=== PATIENT | male | born 1945 | race African-American/Black ===

== ENCOUNTER 2017-01-15 11:16 | Outpatient (CLI) | payer MEDICARE ==
[2017-01-15 12:26] LABS: #Basophils 0.1 thou/uL (0.0-0.2); #Eosinphils 0.4 thou/uL (0.0-0.7); #Lymphocytes 2.8 thou/uL (1.20-3.40); #Monocytes 0.4 thou/uL (0.11-0.59); #Neutrophils 6.9 thou/uL (1.40-6.50); %Basophils 1.1 % (0.0-1.0); %Lymphocytes 26.3 % (21.0-51.0); %Monocytes 3.9 % (0.0-10.0); %Neutrophils 64.8 % (42.0-75.0); Mean Corpuscular Hemoglobin 27.4 pg (27.0-31.0); Mean Corpuscular Volume 85.6 fl (80.0-94.0); Mean Platelet Volume 9.1 fL (7.4-10.4); Platelet Count 184 thou/uL (130-400); RBC Distribution Width 13.2 % (11.5-14.5); Red Blood Cell (RBC) Count 5.11 mill/uL (4.70-6.10); White Blood Cell (WBC) Count 10.7 thou/uL (4.8-10.8)
[2017-01-15 12:32] LABS: ALT (SGPT) 7 U/L (8-55); AST (SGOT) 12 U/L (5-34); Albumin 3.4 g/dL (3.4-4.8); Alkaline Phosphatase 111 U/L (40-150); Anion Gap 16 mmol/L (10-20); BUN (Urea Nitrogen) 30 mg/dL (8.4-25.7); Bilirubin, Total 0.3 mg/dL (0.2-1.2); Calc. Creatinine Clearance 0 mL/min (70-130); Calcium 8.5 mg/dL (7.8-10.44); Carbon Dioxide 28 mmol/L (23-31); Cardiac Risk 6.6 (Less than 4.5); Chloride 98 mmol/L (98-107); Cholesterol 239 mg/dl (< 200 Desired); Estimated GFR-MDRD 30; Globulin 3.8 g/dL (2.4-3.5); Glucose 310 mg/dL (80-115); HDL Cholesterol 36 mg/dL (>60 Neg Risk); LDL Cholesterol, Calculated 162 mg/dL; Protein, Total 7.2 g/dL (5.8-8.1); Sodium 137 mmol/L (136-145); Triglycerides 204 mg/dL (Less than 150)
[2017-01-15 13:07] LABS: Hemoglobin A1c 7.5 % (4.0-6.0)
[2017-01-15 18:08] LABS: Creatinine, Urine 199.13 mg/dL (63-166)
[2017-01-15 18:19] LABS: Microalbumin Urine Greater than 200.0 mg/dL (0.5-50.0); Microalbumin/Creat Ratio 1004.4 mg/g (Less than 30)
== END 2017-01-15 11:17 | disposition home or self-care (01) ==
LOC: NAVSJIPCSP 11:16
PROVIDERS: ATTEND Internal Medicine
DX: Z12.5 Encounter for screening for malignant neoplasm of prostate (principal); Z12.11 Encounter for screening for malignant neoplasm of colon; E11.9 Type 2 diabetes mellitus without complications; E78.5 Hyperlipidemia, unspecified; I11.9 Hypertensive heart disease without heart failure
CPT/HCPCS: 36415; 80053; 80061; 82043; 82274; 83036; 85025; G0103

== ENCOUNTER 2018-08-04 11:47 | Emergency (ER) | payer MEDICARE ==
[2018-08-04] MEDS ORDERED: methylPREDNISolone Sod Succ/PF 125 MG/2 ML VIAL ONE (12:23)
[2018-08-04 13:00] LABS: #Basophils 0.1 thou/uL (0.0-0.2); #Eosinphils 0.3 thou/uL (0.0-0.7); #Lymphocytes 1.8 thou/uL (1.20-3.40); #Monocytes 0.9 thou/uL (0.11-0.59); #Neutrophils 6.4 thou/uL (1.40-6.50); %Basophils 0.7 % (0.0-1.0); %Eosinophils 3.6 % (0.0-10.0); %Lymphocytes 19.3 % (21.0-51.0); %Monocytes 9.3 % (0.0-10.0); %Neutrophils 67.1 % (42.0-75.0); Hemoglobin 11.5 g/dL (14.0-18.0); Mean Corpuscular Hemoglobin 27.1 pg (27.0-31.0); Mean Corpuscular Volume 90.5 fL (78.0-98.0); Mean Platelet Volume 8.8 fL (7.4-10.4); Platelet Count 183 thou/uL (130-400); RBC Distribution Width 15.9 % (11.5-14.5); Red Blood Cell (RBC) Count 4.25 mill/uL (4.70-6.10); White Blood Cell (WBC) Count 9.5 thou/uL (4.8-10.8)
[2018-08-04 13:04] LABS: ALT (SGPT) 18 U/L (8-55); AST (SGOT) 18 U/L (5-34); Albumin 3.2 g/dL (3.4-4.8); Alkaline Phosphatase 135 U/L (40-150); Anion Gap 15 mmol/L (10-20); BUN (Urea Nitrogen) 29 mg/dL (8.4-25.7); Bilirubin, Total 0.4 mg/dL (0.2-1.2); Calc. Creatinine Clearance 0 mL/min (70-130); Calcium 8.3 mg/dL (7.8-10.44); Carbon Dioxide 29 mmol/L (23-31); Chloride 103 mmol/L (98-107); Estimated GFR-MDRD 25; Globulin 4.4 g/dL (2.4-3.5); Glucose 158 mg/dL (83-110); Potassium 4.5 mmol/L (3.5-5.1); Protein, Total 7.6 g/dL (5.8-8.1); Sodium 142 mmol/L (136-145)
--- NOTE | 2018-08-04 13:07 | RAD ---
PORTABLE CHEST: DATE: 08/04/2018. TIME: 12:39 p.m. History Cough, dyspnea, shortness of breath. FINDINGS/IMPRESSION: Comparison is made with the exam of 04/08/2015. The heart size is enlarged. There is mild elevation of the right hemidiaphragm. No focal areas of c onsolidation, pneumothoraces, chayito pulmonary edema, or large effusions are seen. There is mild prom inence of the pulmonary vascularity. POS: [facility]
[2018-08-04] MEDS ORDERED: Furosemide 40 MG/4 ML VIAL ONE (13:22)
[2018-08-04] MEDS ORDERED: Enoxaparin Sodium 100 MG/ML SYRINGE ONE (14:18)
== END 2018-08-04 14:57 | disposition short-term general hospital (02) ==
LOC: NAV ERS 11:47
DX: I13.0 Hypertensive heart and chronic kidney disease with heart failure and stage 1 through stage 4 chronic kidney disease, or unspecified chronic kidney disease (principal); N18.9 Chronic kidney disease, unspecified; I50.9 Heart failure, unspecified; N17.9 Acute kidney failure, unspecified; E11.22 Type 2 diabetes mellitus with diabetic chronic kidney disease; E78.5 Hyperlipidemia, unspecified; J44.9 Chronic obstructive pulmonary disease, unspecified; F17.210 Nicotine dependence, cigarettes, uncomplicated; Z79.899 Other long term (current) drug therapy
CPT/HCPCS: 71045; 80053; 83880; 84484; 85025; 87804; 93005; 96372; 96374; 96375; J1650; J1940; J2930; J7620

== ENCOUNTER 2020-12-09 08:41 | Emergency (ER) | payer MEDICARE ==
[2020-12-09 19:46] LABS: SARS-CoV-2 PCR by NAA Not Detected (NotDetected)
== END 2020-12-09 09:46 | disposition home or self-care (01) ==
LOC: NAV ERS 08:41
DX: J44.1 Chronic obstructive pulmonary disease with (acute) exacerbation (principal); Z20.822 Contact with and (suspected) exposure to COVID-19; I11.0 Hypertensive heart disease with heart failure; I50.9 Heart failure, unspecified; E11.9 Type 2 diabetes mellitus without complications; E78.5 Hyperlipidemia, unspecified; E78.00 Pure hypercholesterolemia, unspecified; J44.9 Chronic obstructive pulmonary disease, unspecified; F17.210 Nicotine dependence, cigarettes, uncomplicated; Z79.899 Other long term (current) drug therapy
CPT/HCPCS: 71046; U0003; U0005

== ENCOUNTER 2022-03-08 08:42 | Emergency (ER) | payer MEDICARE, OTHER | END 2022-03-08 09:23 | disposition home or self-care (01) | LOC: NAV ERS 08:42 | DX: K59.00 Constipation, unspecified (principal); I10 Essential (primary) hypertension; E78.5 Hyperlipidemia, unspecified; Z79.899 Other long term (current) drug therapy | CPT/HCPCS: 99283 ==

== ENCOUNTER 2023-11-05 15:27 | Emergency (ER) | payer OTHER, MEDICARE ==
[2023-11-05 16:02] LABS: #Basophils 0.1 thou/uL (0.0-0.2); #Eosinphils 0.1 thou/uL (0.0-0.7); #Lymphocytes 0.7 thou/uL (1.20-3.40); #Monocytes 0.6 thou/uL (0.11-0.59); %Basophils 0.4 % (0.0-1.0); %Eosinophils 0.6 % (0.0-10.0); %Lymphocytes 5.1 % (21.0-51.0); %Monocytes 4.1 % (0.0-10.0); %Neutrophils 89.9 % (42.0-75.0); Hematocrit 34.9 % (42.0-52.0); Hemoglobin 10.7 g/dL (14.0-18.0); Mean Corpuscular HGB CONC 30.7 g/dL (32.0-36.0); Mean Corpuscular Hemoglobin 27.8 pg (27.0-31.0); Mean Corpuscular Volume 90.5 fl (78.0-98.0); Mean Platelet Volume 7.2 fL (7.4-10.4); Platelet Count 167 10x3/uL (130-400); RBC Distribution Width 14.1 % (11.5-14.5); Red Blood Cell (RBC) Count 3.86 mill/uL (4.70-6.10); White Blood Cell (WBC) Count 13.4 10x3/uL (4.8-10.8)
[2023-11-05 16:05] LABS: ALT (SGPT) 15 U/L (8-55); AST (SGOT) 35 U/L (5-34); Albumin 3.7 g/dL (3.4-4.8); Alkaline Phosphatase 85 U/L (40-110); Anion Gap 20 mmol/L (10-20); BUN (Urea Nitrogen) 36 mg/dL (8.4-25.7); Bilirubin, Total 0.5 mg/dL (0.2-1.2); Calc. Creatinine Clearance 0 mL/min (70-130); Calcium 8.6 mg/dL (7.8-10.44); Carbon Dioxide 24 mmol/L (23-31); Chloride 98 mmol/L (98-107); Estimated GFR 11; Globulin 4.7 g/dL (2.4-3.5); Glucose 130 mg/dL (83-110); Protein, Total 8.4 g/dL (5.8-8.1); Sodium 136 mmol/L (136-145)
[2023-11-05 16:11] LABS: Troponin I 0.034 ng/mL (< 0.028)
[2023-11-05 16:37] LABS: Lipase 23 U/L (8-78)
[2023-11-05 17:00] LABS: Bilirubin Negative (Negative); Blood, Urine Moderate (Negative); Clarity Slightly Cloudy (Clear); Glucose, Urine (Dipstick) Negative (Negative); Ketone, Urine Negative (Negative); Leukocyte Trace (Negative); Nitrite Negative (Negative); Protein, Urine (Dipstick) > or equal to 300 mg/dL (Neg-Trace); Urobilinogen 0.2 mg/dL (Less than 2); pH, Urine 5.5 (5.0-9.0)
[2023-11-05 17:07] LABS: CAUTI Indications for Culture Dysuria,urgency,freq; RBC/HPF 0-3 HPF (0-3); Squamous Epithelial 0-3 HPF (0-3)
[2023-11-05 17:08] LABS: Sperm/HPF 3+ HPF (None Seen); Urine Culture Reflex No No
[2023-11-05 17:19] LABS: Prothrombin Time 13.1 sec (12.0-14.7)
[2023-11-05 17:20] LABS: PTT 35.9 sec (22.9-36.1)
[2023-11-05] MEDS ORDERED: cefTRIAXone (ROCEPHIN) 2 GM VIAL ONE (17:21)
[2023-11-05] MEDS ORDERED: Metoclopramide HCl 10 MG (2 mL) VIAL ONE (17:21)
[2023-11-05] MEDS ORDERED: Azithromycin 500 MG VIAL ONE (17:21)
[2023-11-05] MEDS ORDERED: Acetaminophen 500 MG TAB ONE (17:21)
[2023-11-05] MEDS ORDERED: Sodium Chloride 0.9% 500 ML ONE (17:21)
[2023-11-05] MEDS ORDERED: Ipratropium/Albuterol 3 ML NEB ONE (19:20)
[2023-11-05] MEDS ORDERED: methylPREDNISolone Sod Succ/PF 125 MG/2 ML VIAL ONE (19:27)
== END 2023-11-05 20:00 | disposition short-term general hospital (02) ==
LOC: NAV ERS 15:27
DX: A41.9 Sepsis, unspecified organism (principal); K59.00 Constipation, unspecified; J18.9 Pneumonia, unspecified organism; R11.2 Nausea with vomiting, unspecified; E78.00 Pure hypercholesterolemia, unspecified; J44.9 Chronic obstructive pulmonary disease, unspecified; I13.0 Hypertensive heart and chronic kidney disease with heart failure and stage 1 through stage 4 chronic kidney disease, or unspecified chronic kidney disease; E11.22 Type 2 diabetes mellitus with diabetic chronic kidney disease; N18.6 End stage renal disease; I50.84 End stage heart failure; F17.210 Nicotine dependence, cigarettes, uncomplicated; Z99.2 Dependence on renal dialysis; Z79.899 Other long term (current) drug therapy
CPT/HCPCS: 71045; 74176; 80053; 81001; 83605; 83690; 83880; 84484; 85025; 85610; 85730; 87040; 87077; 87086; 87149; 87186; 93005; 96365; 96375; J0456; J0696; J2765; J2930; J7030; J7620

== ENCOUNTER 2024-05-05 19:59 | Emergency (ER) | payer OTHER ==
[2024-05-05] MEDS ORDERED: Metoprolol Tartrate 25 MG TAB ONE (20:24)
== END 2024-05-05 21:04 | disposition home or self-care (01) ==
LOC: NAV ERS 19:59
DX: K59.09 Other constipation (principal); I13.2 Hypertensive heart and chronic kidney disease with heart failure and with stage 5 chronic kidney disease, or end stage renal disease; E11.22 Type 2 diabetes mellitus with diabetic chronic kidney disease; I50.9 Heart failure, unspecified; N18.6 End stage renal disease; E78.00 Pure hypercholesterolemia, unspecified; J44.9 Chronic obstructive pulmonary disease, unspecified; F17.210 Nicotine dependence, cigarettes, uncomplicated
CPT/HCPCS: 99283

== ENCOUNTER 2025-03-29 17:14 | Emergency (ER) | payer MEDICARE, OTHER ==
[2025-03-29] MEDS ORDERED: Dextrose 50% Abboject 50 ML SYRINGE ONE ×3 (17:20→19:56)
[2025-03-29] MEDS ORDERED: Dextrose 30 ML TUBE ONE (17:21)
[2025-03-29 17:36] LABS: Hematocrit 32.0 % (42.0-52.0); Hemoglobin 10.1 g/dL (14.0-18.0); Mean Corpuscular Hemoglobin 29.5 pg (27.0-31.0); Mean Corpuscular Volume 93.2 fl (78.0-98.0); Platelet Count 191 10x3/uL (130-400); Red Blood Cell (RBC) Count 3.44 mill/uL (4.70-6.10); White Blood Cell (WBC) Count 9.4 10x3/uL (4.8-10.8)
[2025-03-29 17:37] LABS: #Basophils 0.2 thou/uL (0.0-0.2); #Eosinophils 0.3 thou/uL (0.0-0.7); #Lymphocytes 1.1 thou/uL (1.20-3.40); #Monocytes 0.6 thou/uL (0.11-0.59); #Neutrophils 7.2 thou/uL (1.40-6.50); %Basophils 1.8 % (0.0-1.0); %Eosinophils 3.3 % (0.0-10.0); %Lymphocytes 11.7 % (21.0-51.0); %Monocytes 6.1 % (0.0-10.0); %Neutrophils 77.1 % (42.0-75.0); Manual Diff?? NO
[2025-03-29 17:48] LABS: ALT (SGPT) 8 U/L (Less than 45); AST (SGOT) 18 U/L (11-34); Albumin 3.1 g/dL (3.1-4.5); Alkaline Phosphatase 89 U/L (40-110); Anion Gap 17 mmol/L (10-20); BUN (Urea Nitrogen) 19 mg/dL (8.4-25.7); Bilirubin, Total 0.2 mg/dL (0.3-1.2); Calc. Creatinine Clearance 0 mL/min (70-130); Calcium 8.4 mg/dL (7.8-10.44); Carbon Dioxide 30 mmol/L (23-31); Chloride 97 mmol/L (98-107); Globulin 4.7 g/dL (2.4-3.5); Glucose 152 mg/dL (83-110); Potassium 3.9 mmol/L (3.5-5.1); Sodium 140 mmol/L (136-145)
[2025-03-29 17:58] LABS: Magnesium 1.7 mg/dL (1.6-2.6)
[2025-03-29 18:04] LABS: Troponin I 0.133 ng/mL (< 0.028)
[2025-03-29] MEDS ORDERED: cefTRIAXone (ROCEPHIN) 1 GM VIAL ONE (19:05)
[2025-03-29 21:12] LABS: Troponin I 0.132 ng/mL (< 0.028)
== END 2025-03-29 22:45 | disposition short-term general hospital (02) ==
LOC: NAV ERS 17:14
DX: E11.649 Type 2 diabetes mellitus with hypoglycemia without coma (principal); R79.89 Other specified abnormal findings of blood chemistry; I13.2 Hypertensive heart and chronic kidney disease with heart failure and with stage 5 chronic kidney disease, or end stage renal disease; E11.22 Type 2 diabetes mellitus with diabetic chronic kidney disease; N18.6 End stage renal disease; I50.9 Heart failure, unspecified; Z99.2 Dependence on renal dialysis; F17.210 Nicotine dependence, cigarettes, uncomplicated
CPT/HCPCS: 36416; 71045; 80053; 83605; 83735; 83880; 84484; 85025; 87040; 93005; 96361; 96374; 36415-59; J0696; J7999